=== PATIENT | male | born 1980 | race American Indian/Alaskan Native ===

== ENCOUNTER 2018-06-03 02:33 | Emergency (ER) | payer SELFPAY ==
[~2018-06-03] VITALS: Ht 177.8 cm; Wt 157.0 kg
[~2018-06-03 02:33] MED LIST: CEPH-571 PO
[2018-06-03] MEDS ORDERED: AZIT250T PO (03:14)
[2018-06-03 03:23] VITALS: BP 179/109
== END 2018-06-03 03:24 | disposition home or self-care (01) ==
LOC: ER 02:34
DX: J02.9 Acute pharyngitis, unspecified (principal); H92.01 Otalgia, right ear; I10 Essential (primary) hypertension; E11.9 Type 2 diabetes mellitus without complications; Z88.0 Allergy status to penicillin; Z88.1 Allergy status to other antibiotic agents; Z79.899 Other long term (current) drug therapy
CPT/HCPCS: 99283